=== PATIENT | male | born 1965 | race Caucasian/White ===

== ENCOUNTER 2021-02-07 15:50 | Emergency (ER) | payer OTHER ==
[~2021-02-07 15:50] MED LIST: CIPRO500 MG PO; METRONIDAZOLE500 MG PO; NAPROXEN500 MG PO
[2021-02-07] MEDS ORDERED: CEPHALEXIN500 MG PO (18:29)
== END 2021-02-07 18:40 | disposition home or self-care (01) ==
LOC: FER 15:50
DX: L03.116 Cellulitis of left lower limb (principal); I10 Essential (primary) hypertension; Z87.19 Personal history of other diseases of the digestive system; Z88.8 Allergy status to other drugs, medicaments and biological substances
CPT/HCPCS: 93971